=== PATIENT | male | born 1970 | race Two or more races ===

== ENCOUNTER 2016-08-13 09:07 | Emergency (ER) | payer BC, OTHER ==
[~2016-08-13] VITALS: Ht 180.3 cm; Wt 111.1 kg
[2016-08-13 09:14] VITALS: BP 121/75
[2016-08-13] MEDS ORDERED: KETOROLAC TROMETH 60MG/2ML VIAL IM ONE (10:00)
== END 2016-08-13 10:34 | disposition home or self-care (01) ==
LOC: ER 09:17
DX: G89.29 Other chronic pain (principal); M54.42 Lumbago with sciatica, left side; M25.562 Pain in left knee
CPT/HCPCS: 96372; 99283; J1885